=== PATIENT | female | born 1990 | race Caucasian/White ===

== ENCOUNTER 2020-04-19 22:00 | Inpatient (IN) | payer OTHER ==
[2020-04-19] MEDS: DEXTROSE 5%-LACTATED RINGERS 1,000 ML IV SCH (23:30)
[2020-04-19] MEDS ORDERED: DINOPROSTONE 10 MG VAGINAL SUPPOSITORY VG ONE (23:47)
--- NOTE | 2020-04-19 23:52 | HP ---
Past Medical History - Admission Chief Complaint: Postterm History of Present Illness: 29 yo , @ 40 weeks gestation, EDC 04/19/20 admitted for induction of labor. History Source: Patient Limitations to Obtaining History: No Limitations - Past Medical History ...: 1 ...Para: 0 ...EDC by Humberto: 04/19/20 - Past Surgical History Past Surgical History: Yes: None Hx Myomectomy: No Hx Transabdominal Cerclage: No - Smoking History Have you smoked in the past 12 months: No - Alcohol/Substance Use Hx Alcohol Use: No History of Substance Use: reports: None - Social History Usual Living Arrangement: Yes: With Spouse Do you think of yourself as: Straight/Heterosexual History of Recent Travel: No Family Medical History Family History: Unremarkable Review of Systems - Review of Systems Constitutional: reports: No Symptoms Eyes: reports: No Symptoms HENT: reports: No Symptoms Neck: reports: No Symptoms Cardiovascular: reports: No Symptoms Respiratory: reports: No Symptoms Gastrointestinal: reports: No Symptoms Genitourinary: reports: Other (Back pain) Musculoskeletal: reports: No Symptoms Neurological: reports: No Symptoms Psychiatric: reports: No Symptoms Pain Intensity: 3 Physical Exam - Maternity Constitutional: Yes: Well Nourished Eyes: Yes: Conjunctiva Clear HENT: Yes: Atraumatic Neck: Yes: Supple Cardiovascular: Yes: Regular Rate and Rhythm Lungs: Clear to auscultation - Abdominal Exam/OB Number of Fetuses: Single Presentation: Vertex Category: I Decelerations: None - Vaginal Exam/OB Presentation: Vertex/Position Station: -3 - Physical Exam ...Motor Strength: WNL Psychiatric: Yes: Alert, Oriented Problem List - Problems (1) 40 weeks gestation of Problems reviewed: Yes Code(s): Z3A.40 - 40 WEEKS GESTATION OF Assessment/Plan 40 weeks gestation Admit for Cervidil induction
[2020-04-20 00:10] LABS: BASO % 0.2 % (0-2.0); HEMATOCRIT 33.5 % (32.4-45.2); HEMOGLOBIN 11.2 GM/dL (10.7-15.3); LYMPH % 16.8 % (8-40); MCH 30.8 pg (25.7-33.7); MCHC 33.3 g/dl (32.0-36.0); MEAN CELL VOLUME 92.7 fl (80-96); MEAN PLT VOLUME 10.7 fl (7.5-11.1); MONO % 6.1 % (3.8-10.2); NEUT % 76.9 % (42.8-82.8); PLATELET COUNT 237 K/MM3 (134-434); RBC 3.62 M/mm3 (3.60-5.2); RDW 13.2 % (11.6-15.6); WHITE BLOOD COUNT 11.1 K/mm3 (4.0-10.0)
[2020-04-20 00:16] LABS: INR 0.87 (0.83-1.09); PROTHROMBIN TIME (PATIENT) 10.3 SEC (9.7-13.0)
[2020-04-20 00:19] LABS: ACTIVATED PTT 24.5 SECONDS (25.2-36.5)
[2020-04-20 00:37] LABS: ALBUMIN 2.8 g/dl (3.4-5.0); BILIRUBIN,TOTAL 0.4 mg/dL (0.2-1); BLOOD UREA NITROGEN 6.9 mg/dL (7-18); CALCIUM 8.9 mg/dL (8.5-10.1); CREATININE 0.5 mg/dL (0.55-1.3); POTASSIUM 3.9 mmol/L (3.5-5.1); TOT PROT 6.4 g/dl (6.4-8.2)
[2020-04-20 00:53] VITALS: BMI 29.7
[2020-04-20] MEDS: DEXTROSE 5%-LACTATED RINGERS 1,000 ML IV SCH (03:40)
[2020-04-20] MEDS ORDERED: PROMETHAZINE HCL 25 MG/1 ML VIAL ONE (03:45)
[2020-04-20] MEDS ORDERED: BUTORPHANOL TARTRATE 1 MG/ML VIAL IVPB ONE (03:45)
[2020-04-20] MEDS ORDERED: BUTORPHANOL TARTRATE 1 MG/ML VIAL ONE ×2 (03:45)
[2020-04-20] MEDS ORDERED: PROMETHAZINE HCL 25 MG/1 ML VIAL IVPB ONE (03:45)
[2020-04-20] MEDS ORDERED: AMPICILLIN - 2 GM in SODIUM CHLORIDE 100 ML IVPB ONE (05:00)
[2020-04-20] MEDS ORDERED: AMPICILLIN SODIUM 2 GM VIAL ONE (05:04)
[2020-04-20] MEDS ORDERED: LIDOCAINE HCL 1% PRESERVATIVE FREE - 30ML VIAL ONE (05:19)
[2020-04-20] MEDS ORDERED: OXYTOCIN 20 UNITS in 0.9% NS 20 UNIT/1,000 ML INFUS.BAG IV ONE (05:19)
[2020-04-20] MEDS ORDERED: MEPERIDINE HCL 50 MG/ML VIAL ONE (05:53)
[2020-04-20] MEDS ORDERED: BENZOCAINE 28 GM HEMORRHOIDAL OINTMENT TP PRN (06:35)
[2020-04-20] MEDS ORDERED: METHYLERGONOVINE MALEATE 0.2 MG/1 ML AMP IM PRN (06:35)
[2020-04-20] MEDS ORDERED: BENZOCAINE 20% 57 GM BOTTLE TP PRN (06:35)
[2020-04-20] MEDS ORDERED: BISACODYL 10 MG SUPP.RECT RC PRN (06:35)
[2020-04-20] MEDS ORDERED: WITCH HAZEL 50% (TUCKS) 40 PAD/JAR PAD TP PRN (06:35)
--- NOTE | 2020-04-20 06:40 | PN ---
Delivery - Delivery Vaginal Delivery: Spontaneous Type of Anesthesia: Local Episiotomy/Laceration: 3rd degree EBL (cc): 500 Delivery, Single - Feeding Plan Initial Plan: Elected not to breastfeed exclusively throughout hospitalization Remarks - Remarks Remarks: Normal spontaneous vaginal delivery of a live infant boy over third degree laceration. Nose / Oropharynx suctioned @ perineum. Cord clamped and cut. Baby handed to nurse. Placenta expelled spontaneously intact. Laceration repaired with 2.0 Chromic in layers. Mother in stable condition.
[2020-04-20] MEDS ORDERED: OXYTOCIN 20 UNITS in 0.9% NS 20 UNIT/1,000 ML INFUS.BAG IV SCH (06:45)
[2020-04-20] MEDS ORDERED: MEPERIDINE HCL 25 MG/ML VIAL IM ONE (07:31)
[2020-04-20] MEDS: AMPICILLIN - 1 GM in SODIUM CHLORIDE 100 ML IVPB SCH ×3 (09:23→18:11)
[2020-04-20] MEDS: ACETAMINOPHEN 325 MG TABLET (FP) PO PRN ×3 (10:41→22:28)
[2020-04-20] MEDS: FERROUS SO4 325 MG TABLET (FP) PO SCH ×2 (10:41→22:28)
[2020-04-20] MEDS: PRENATAL VITAMINS W/ FOLIC ACID TABLET (FP) PO SCH (10:41)
[2020-04-20] MEDS: IBUPROFEN 600 MG TABLET (FP) PO PRN ×3 (10:42→22:28)
[2020-04-21] MEDS: DEXTROSE 5%-LACTATED RINGERS 1,000 ML IV SCH
[2020-04-21 08:37] LABS: BASO % 0.3 % (0-2.0); EOS % 0.3 % (0-4.5); HEMATOCRIT 19.8 % (32.4-45.2); LYMPH % 22.4 % (8-40); MCH 30.5 pg (25.7-33.7); MCHC 32.4 g/dl (32.0-36.0); MEAN CELL VOLUME 94.1 fl (80-96); MEAN PLT VOLUME 10.5 fl (7.5-11.1); MONO % 6.1 % (3.8-10.2); NEUT % 70.9 % (42.8-82.8); PLATELET COUNT 174 K/MM3 (134-434); RBC 2.11 M/mm3 (3.60-5.2); RDW 13.6 % (11.6-15.6); WHITE BLOOD COUNT 12.7 K/mm3 (4.0-10.0)
[2020-04-21 08:42] LABS: HEMOGLOBIN 6.4 GM/dL (10.7-15.3)
--- NOTE | 2020-04-21 09:32 | PN ---
Post Progress Note - Subjective Subjective: 29 yo Para 1, status post vaginal delivery, seen and evaluated. She denies any dizziness, but c/o generalized body ache. Post Day: 1 Type of Delivery: Vital Signs: Vital Signs Temperature 97.9 F 04/21/20 06:00 Pulse Rate 97 H 04/21/20 06:00 Respiratory Rate 20 04/21/20 06:00 Blood Pressure 111/63 04/21/20 06:00 O2 Sat by Pulse Oximetry (%) 100 04/20/20 09:35 Breast Exam: Yes: Soft Uterus: Yes: Fundus Firm Abdomen/GI: Yes: Abdomen soft, Tolerating PO Lochia: Yes: Rubra Lochia, amount: Moderate Extremities: Yes: Calves non-tender Perineum: Yes: Laceration (Healing) Activity: Ambulating - Labs Labs: CBC WBC 12.7 K/mm3 (4.0-10.0) H 04/21/20 07:23 RBC 2.11 M/mm3 (3.60-5.2) L 04/21/20 07:23 Hgb 6.4 GM/dL (10.7-15.3) L* 04/21/20 07:23 Hct 19.8 % (32.4-45.2) L D 04/21/20 07:23 MCV 94.1 fl (80-96) 04/21/20 07:23 MCH 30.5 pg (25.7-33.7) 04/21/20 07:23 MCHC 32.4 g/dl (32.0-36.0) 04/21/20 07:23 RDW 13.6 % (11.6-15.6) 04/21/20 07:23 Plt Count 174 K/MM3 (134-434) D 04/21/20 07:23 MPV 10.5 fl (7.5-11.1) 04/21/20 07:23 Absolute Neuts (auto) 9.0 K/mm3 (1.5-8.0) H 04/21/20 07:23 Neutrophils % 70.9 % (42.8-82.8) 04/21/20 07:23 Lymphocytes % 22.4 % (8-40) D 04/21/20 07:23 Monocytes % 6.1 % (3.8-10.2) 04/21/20 07:23 Eosinophils % 0.3 % (0-4.5) D 04/21/20 07:23 Basophils % 0.3 % (0-2.0) 04/21/20 07:23 Nucleated RBC % 0 % (0-0) 04/21/20 07:23 Problem List - Problems (1) 40 weeks gestation of Problems reviewed: Yes Code(s): Z3A.40 - 40 WEEKS GESTATION OF (2) Status post normal vaginal delivery Problems reviewed: Yes Code(s): WPF8301 - Assessment/Plan Status post vaginal delivery Anemia Consider blood transfusion Continue care
[2020-04-21] MEDS: FERROUS SO4 325 MG TABLET (FP) PO SCH ×2 (10:20→22:00)
[2020-04-21] MEDS: PRENATAL VITAMINS W/ FOLIC ACID TABLET (FP) PO SCH (10:20)
[2020-04-21] MEDS: IBUPROFEN 600 MG TABLET (FP) PO PRN ×2 (13:20→22:02)
[2020-04-21] MEDS: ACETAMINOPHEN 325 MG TABLET (FP) PO PRN ×2 (13:20→22:02)
[2020-04-21] MEDS ORDERED: SENNOSIDES/DOCUSATE COMBO (SENNA PLUS) TABLET (UD) PO PRN (22:00)
[2020-04-22 02:43] LABS: BASO % 0.2 % (0-2.0); EOS % 0.5 % (0-4.5); HEMATOCRIT 26.9 % (32.4-45.2); HEMOGLOBIN 8.8 GM/dL (10.7-15.3); LYMPH % 17.1 % (8-40); MCH 30.2 pg (25.7-33.7); MCHC 32.8 g/dl (32.0-36.0); MEAN CELL VOLUME 91.9 fl (80-96); MEAN PLT VOLUME 9.9 fl (7.5-11.1); MONO % 5.8 % (3.8-10.2); NEUT % 76.4 % (42.8-82.8); PLATELET COUNT 186 K/MM3 (134-434); RBC 2.93 M/mm3 (3.60-5.2); RDW 14.2 % (11.6-15.6); WHITE BLOOD COUNT 14.3 K/mm3 (4.0-10.0)
[2020-04-22] MEDS: FERROUS SO4 325 MG TABLET (FP) PO SCH (09:10)
[2020-04-22] MEDS: PRENATAL VITAMINS W/ FOLIC ACID TABLET (FP) PO SCH (09:10)
[2020-04-22] MEDS: IBUPROFEN 600 MG TABLET (FP) PO PRN (09:22)
[2020-04-22] MEDS: ACETAMINOPHEN 325 MG TABLET (FP) PO PRN (09:23)
[2020-04-22 12:27] VITALS: BP 120/66; PULSE 86; TEMP 97.9
--- NOTE | 2020-04-22 15:08 | DS ---
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: Vital Signs Temperature 97.9 F 04/22/20 08:00 Pulse Rate 86 04/22/20 08:00 Respiratory Rate 18 04/22/20 08:00 Blood Pressure 120/66 04/22/20 08:00 O2 Sat by Pulse Oximetry (%) 100 04/20/20 09:35 Constitutional: Yes: No Distress Eyes: Yes: Conjunctiva Clear HENT: Yes: Atraumatic Neck: Yes: Supple Cardiovascular: Yes: Regular Rate and Rhythm Respiratory: Yes: Regular Gastrointestinal: Yes: Normal Bowel Sounds External Genitalia: Yes: Normal Vaginal Exam: Yes: Bleeding Cervix: Yes: Bleeding Uterus: Yes: Firm ....Post : Yes: Uterus firm, Moderate lochia serosa Breast(s): Yes: WNL Musculoskeletal: Yes: WNL Extremities: Yes: WNL Neurological: Yes: Alert, Oriented ...Motor Strength: WNL Psychiatric: Yes: Alert, Oriented Labs: CBC, BMP 04/22/20 02:30 04/19/20 23:30 Delivery - Delivery Vaginal Delivery: Spontaneous Type of Anesthesia: Local Episiotomy/Laceration: 3rd degree EBL (cc): 500 Delivery, Single - Stages of Labor Date 1st Stage Initiatied: 04/20/20 Time 1st Stage Initiated: 03:30 Date 2nd Stage Initiated: 04/20/20 Time 2nd Stage Initiated: 05:20 Date of Delivery: 04/20/20 Time of Delivery: 05:34 Time Placenta Delivered: 05:40 - 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 Health Concerns: None Plan of Treatment: Analgesia Ferrous sulfate F/U with MD in 4 weeks Goals: Resume regular activities in 6 weeks Condition: Good - Instructions Diet, Activity, Other Instructions: Regular diet No douching, no sexual intercourse x 6 weeks F/U with MD in 4 weeks Disposition: HOME - Home Medications Comprehensive Discharge Medication List: Ambulatory Orders Ferrous Sulfate [Iron] 325 mg PO BID 04/20/20 Vitamins (Sjr) - 1 tab PO DAILY 04/20/20 Ferrous Sulfate [Feosol] 325 mg PO BID #180 tablet 04/22/20 Ibuprofen [Motrin -] 600 mg PO Q4H PRN #60 tablet 04/22/20
== END 2020-04-22 17:00 | disposition home or self-care (01) | DRG 768 ==
LOC: JLDR 22:00 → J3N 04-20 09:40 → J3W 04-22 14:00
PROVIDERS: ADMIT Obstetrics & Gynecology; ATTEND Obstetrics & Gynecology
PROC: 3E0P7VZ Introduction of Hormone into Female Reproductive, Via Natural or Artificial Opening (ICD-10-PCS; 2020-04-19)
PROC: 10E0XZZ Delivery of Products of Conception, External Approach (ICD-10-PCS; principal; 2020-04-20)
PROC: 0DQR0ZZ Repair Anal Sphincter, Open Approach (ICD-10-PCS; 2020-04-20)
DX: O48.0 Post-term pregnancy (principal); Z37.0 Single live birth; O70.20 Third degree perineal laceration during delivery, unspecified; O90.81 Anemia of the puerperium; D64.9 Anemia, unspecified; Z3A.40 40 weeks gestation of pregnancy
CPT/HCPCS: 36415; 36430; 59409; 80053; 85025; 85610; 85730; 86780; 86850; 86900; 86901; 86922; J2175; P9058; U0003